=== PATIENT | female | born 1970 | race Caucasian/White ===

== ENCOUNTER 2018-02-25 18:46 | Emergency (ER) | payer SELFPAY ==
--- NOTE | 2018-02-25 19:27 | EKG REPORT ---
SEVERITY:- BORDERLINE ECG - SINUS RHYTHM PROBABLE LEFT ATRIAL ABNORMALITY : Confirmed by: Raleigh Anguiano MD 25-Feb-2018 19:27:00
[2018-02-25] MEDS ORDERED: ASPIRIN 81 MG TABLET, CHEWABLE PO ONE (19:36)
--- NOTE | 2018-02-25 19:36 | ER Document Report ---
ED Medical Screen (RME) - General Chief Complaint: Chest Pain Stated Complaint: CHEST PAIN, DIFFICULTY BREATHING, NUMBNESS Time Seen by Provider: 02/25/18 19:35 TRAVEL OUTSIDE OF THE [place] IN LAST 30 DAYS: No - HPI Notes: 02/25/18 19:35 Chest pain shortness of breath ongoing for months worse over the last few days recent travel to [place] sent from urgent care to rule out PE - Related Data Allergies/Adverse Reactions: No Known Allergies Allergy (Verified 02/25/18 19:35) Past Medical History - Social History Chew tobacco use (# tins/day): No Frequency of alcohol use: Rare Drug Abuse: Marijuana Renal/ Medical History: Denies: Hx Peritoneal Dialysis Past Surgical History: Reports: Hx Section - Immunizations Hx Diphtheria, Pertussis, Tetanus Vaccination: Yes Review of Systems - Review of Systems Cardiovascular: Chest pain, Dyspnea Physical Exam - Vital signs Vitals: Temp Pulse Resp BP Pulse Ox 98.8 F 63 14 137/84 H 99 02/25/18 19:03 02/25/18 19:03 02/25/18 19:03 02/25/18 19:03 02/25/18 19:03 - Respiratory Respiratory status: No respiratory distress Chest status: Nontender Breath sounds: Normal Chest palpation: Normal Course - Vital Signs Vital signs: Temp Pulse Resp BP Pulse Ox 98.8 F 63 14 137/84 H 99 02/25/18 19:03 02/25/18 19:03 02/25/18 19:03 02/25/18 19:03 02/25/18 19:03
--- NOTE | 2018-02-25 20:16 | RADIOLOGY REPORT (SQ) ---
EXAM DESCRIPTION: CHEST SINGLE VIEW COMPLETED DATE/TIME: 02/25/2018 7:50 pm REASON FOR STUDY: sob COMPARISON: 08/24/2014 EXAM PARAMETERS: NUMBER OF VIEWS: One view. TECHNIQUE: Single frontal radiographic view of the chest acquired. RADIATION DOSE: NA LIMITATIONS: None. FINDINGS: LUNGS AND PLEURA: No opacities, masses or pneumothorax. No pleural effusion. MEDIASTINUM AND HILAR STRUCTURES: No masses. Contour normal. HEART AND VASCULAR STRUCTURES: Heart normal in size. Normal vasculature. BONES: No acute findings. HARDWARE: None in the chest. OTHER: No other significant finding. IMPRESSION: NO ACUTE RADIOGRAPHIC FINDING IN THE CHEST. TECHNICAL DOCUMENTATION: JOB ID: [id number] [employer]- All Rights Reserved Reading location - IP/workstation name: [email or web address]
[2018-02-25 20:30] LABS: ABSOLUTE BASOPHILS # (AUTO) 0.1 10^3/uL (0.0-0.2); ABSOLUTE EOSINOPHILS # (AUTO) 0.1 10^3/uL (0.0-0.6); ABSOLUTE MONOCYTES (AUTO) 0.6 10^3/uL (0.1-1.4); ABSOLUTE NEUT (AUTO) 5.1 10^3/uL (1.7-8.2); BASOPHILS % (AUTO) 1.1 % (0-2); EOSINOPHILS % (AUTO) 1.8 % (0-6); HEMOGLOBIN 13.6 g/dL (12.0-15.5); LYMPHOCYTES % (AUTO) 25.2 % (13-45); MEAN CORPUSCULAR HEMOGLOBIN 27.4 pg (27.0-33.4); MEAN CORPUSCULAR HGB CONC 33.9 g/dL (32.0-36.0); MEAN CORPUSCULAR VOLUME 81 fl (80-97); MONOCYTES % (AUTO) 7.2 % (3-13); PLATELET COUNT 289 10^3/uL (150-450); RED BLOOD COUNT 4.94 10^6/uL (3.72-5.28); RED CELL DISTRIBUTION WIDTH 13.6 % (11.5-14.0); SEGMENTED NEUTROPHILS % (AUTO) 64.7 % (42-78); TOTAL CELLS COUNTED % (AUTO) 100 %; WHITE BLOOD COUNT 7.9 10^3/uL (4.0-10.5)
[2018-02-25 20:51] LABS: ALANINE AMINOTRANSFERASE 26 U/L (9-52); ALBUMIN 4.4 g/dL (3.5-5.0); ALKALINE PHOSPHATASE 79 U/L (38-126); ANION GAP 11 (5-19); ASPARTATE AMINO TRANSFERASE 20 U/L (14-36); BILIRUBIN,DIRECT 0.2 mg/dL (0.0-0.4); BILIRUBIN,TOTAL 0.2 mg/dL (0.2-1.3); BLOOD UREA NITROGEN 10 mg/dL (7-20); CALCIUM 9.9 mg/dL (8.4-10.2); CARBON DIOXIDE 25 mmol/L (22-30); CHLORIDE 105 mmol/L (98-107); CREATINE KINASE 104 U/L (30-135); GLUCOSE 94 mg/dL (75-110); SODIUM 141.2 mmol/L (137-145); TOTAL PROTEIN 7.4 g/dL (6.3-8.2)
[2018-02-25 21:01] LABS: CREATINE KINASE MB 0.97 ng/mL (<4.55)
--- NOTE | 2018-02-25 21:01 | ER Document Report ---
ED General - General Chief Complaint: Chest Pain Stated Complaint: CHEST PAIN, DIFFICULTY BREATHING, NUMBNESS Time Seen by Provider: 02/25/18 19:35 Notes: Patient is a 47-year-old female comes emergency department for chief complaint of intermittent tightness in her chest, intermittent sensation of shortness of breath, anxiety episodes, and intermittent tingling in her hands with pain in her back. She states she has been having the symptoms for the Past couple of months, noticed more over the past 2-3 weeks and also today. She went to urgent care and they referred her here. She states she traveled to [place] 5 weeks ago, she denies any lower extremity swelling, surgery, history of blood clot. She does not smoke except for marijuana, she denies any recreational drugs otherwise, she denies any daily medications, only past medical history reported is a . Patient believes she has family hx of [place]. TRAVEL OUTSIDE OF THE [place] IN LAST 30 DAYS: No - Related Data Allergies/Adverse Reactions: No Known Allergies Allergy (Verified 02/25/18 19:35) Past Medical History - General Information source: Patient - Social History Smoking Status: Former Smoker Chew tobacco use (# tins/day): No Frequency of alcohol use: Rare Drug Abuse: Marijuana Lives with: Family Family History: Reviewed & Not Pertinent Patient has suicidal ideation: No Patient has homicidal ideation: No Renal/ Medical History: Denies: Hx Peritoneal Dialysis Past Surgical History: Reports: Hx Section - Immunizations Hx Diphtheria, Pertussis, Tetanus Vaccination: Yes Review of Systems - Review of Systems Constitutional: No symptoms reported EENT: No symptoms reported Cardiovascular: See HPI Respiratory: See HPI Gastrointestinal: No symptoms reported Genitourinary: No symptoms reported Female Genitourinary: No symptoms reported Musculoskeletal: No symptoms reported Skin: No symptoms reported Hematologic/Lymphatic: No symptoms reported Neurological/Psychological: See HPI Physical Exam - Vital signs Vitals: Temp Pulse Resp BP Pulse Ox 98.8 F 63 14 137/84 H 99 02/25/18 19:03 02/25/18 19:03 02/25/18 19:03 02/25/18 19:03 02/25/18 19:03 Interpretation: Normal - General General appearance: Alert, Other - Patient appears slightly pale and tired but otherwise she is alert and well-appearing In distress: None - HEENT Head: Normocephalic, Atraumatic Eyes: Normal Pupils: PERRL Mucous membranes: Normal Pharynx: Normal Neck: Normal - Respiratory Respiratory status: No respiratory distress Chest status: Nontender Breath sounds: Normal Chest palpation: Normal - Cardiovascular Rhythm: Regular. No: Tachycardia Heart sounds: Normal auscultation, S1 appreciated, S2 appreciated Murmur: No Normal capillary refill: Yes - Abdominal Inspection: Normal Distension: No distension Bowel sounds: Normal Tenderness: Nontender Organomegaly: No organomegaly - Back Back: Normal, Nontender - Extremities General upper extremity: Normal inspection, Nontender, Normal color, Normal ROM , Normal temperature General lower extremity: Normal inspection, Nontender, Normal color, Normal ROM , Normal temperature, Normal weight bearing. No: Natividad's sign - Neurological Neuro grossly intact: Yes Cognition: Normal Orientation: AAOx4 Zach Coma Scale Eye Opening: Spontaneous Zach Coma Scale Verbal: Oriented Zach Coma Scale Motor: Obeys Commands Zach Coma Scale Total: 15 Speech: Normal Motor strength normal: LUE, RUE, LLE, RLE Sensory: Normal - Psychological Associated symptoms: Normal affect, Normal mood - Skin Skin Temperature: Warm Skin Moisture: Dry Skin Color: Pale - Slightly pale Course - Re-evaluation Re-evalutation: EKG shows sinus rhythm at a rate of 62, no T-wave inversions or ST segment changes in consecutive leads, QTC of 435, unremarkable SC interval. Chest x- ray is unremarkable. Patient is not tachycardic, she is well-appearing. CBC, chemistry unremarkable. D-dimer is negative. Cardiac enzymes negative. Symptoms have been going on since this morning and also intermittently for weeks. I discussed results with patient. Patient still reporting intermittent feeling where she feels like she is short of breath or she has a fleeting discomfort in her chest, this is nonspecific and not reproducible. She states that every time she gets anxious she feels it. Patient states she has been under a lot of stress, her dad recently , she has had a lot of stressful things happening at home, she is not sleeping well. and mother came to bedside, they are very supportive, patient denies SI or HI, she states she just wanted to get checked out and she wants to go home. Patient also has tightness in the paracervical muscles of her back. Low suspicion of ACS, PE, dissection, or other acute emergent etiology. Discussed options, patient requesting to go home , she states she has follow-up, discussed recommendations, treatment, return precautions, patient and family state satisfaction and agreement. - Vital Signs Vital signs: Temp Pulse Resp BP Pulse Ox 97.9 F 63 15 132/83 H 100 02/25/18 22:25 02/25/18 19:03 02/25/18 22:17 02/25/18 22:18 02/25/18 22:18 - Laboratory Result Diagrams: 02/25/18 20:16 02/25/18 20:16 Discharge - Discharge Clinical Impression: Anxiety Chest pain Qualifiers: Chest pain type: unspecified Qualified Code(s): R07.9 - Chest pain, unspecified Back pain Qualifiers: Back pain location: back pain in unspecified location Chronicity: unspecified Back pain laterality: bilateral Qualified Code(s): M54.9 - Dorsalgia, unspecified Condition: Stable Disposition: HOME, SELF-CARE Additional Instructions: Your workup today did not show any concerning abnormalities. Take the muscle relaxer as prescribed to help with muscle spasms and I recommend taking this at night to help you sleep. Follow-up with your provider within the next several days for additional evaluation and management. Return if you worsen including passing out, vomiting, fever, difficulty breathing, or any other concerning or worsening symptoms. Chest Pain of Unclear Cause The exact cause of your chest pain isn't clear. Fortunately, there is no evidence of a dangerous medical condition. Further testing may be required to find the source of the pain. Most often, we find that this pain is coming from the chest wall -- the muscles or rib joints in the chest. But chest pain can come from the lung and lung lining, the esophagus, the heart valves or heart lining, and even the stomach or gallbladder. Rest. Eat lightly until the pain is gone. We may prescribe medicine for pain and inflammation. You should call the physician immediately if the pain radiates to the shoulder, jaw or arms; if you start to run a fever or develop a cough; or if you develop shortness of breath, or other new or alarming symptoms. Prescriptions: Cyclobenzaprine HCl [Flexeril 5 mg Tablet] 1 - 2 tab PO TID PRN #20 tablet PRN Reason: Forms: Return to Work Referrals: BRYAN DIETRICH MD [Primary Care Provider] - Follow up as needed
[2018-02-25 21:04] LABS: TROPONIN I < 0.012 ng/mL
[2018-02-25] MEDS ORDERED: CYCLOBENZAPRINE HCL 10 MG TABLET PO ONE (21:22)
[2018-02-26 00:29] VITALS: BP 132/83
== END 2018-02-25 22:31 | disposition home or self-care (01) ==
LOC: ER 18:46
DX: F41.9 Anxiety disorder, unspecified (principal); R07.9 Chest pain, unspecified; R20.0 Anesthesia of skin; M54.9 Dorsalgia, unspecified; R06.00 Dyspnea, unspecified; Z87.891 Personal history of nicotine dependence
CPT/HCPCS: 36415; 71045; 80053; 82550; 82553; 84484; 85025; 85379; 93005; 93010; 99285

== ENCOUNTER 2019-05-19 06:07 | Emergency (ER) | payer SELFPAY ==
--- NOTE | 2019-05-19 07:16 | ER Document Report ---
HPI - HPI Patient complains to provider of: right low back pain with right sided sciatica Time Seen by Provider: 05/19/19 07:07 Onset/Duration: Gradual, Waxing and waning Quality of pain: Achy, Sharp Severity: Moderate Pain Level: 4 Context: This is a 48 yr old female pt with the listed pmh, presenting with an acute exacerbation of their lower back pain and right sided sciatica. Patient states that this has been ongoing for 3 wks and seems to be worsening since she is still having to go to work. she went to [facility] recently outpt and was given mobic and flexeril for her sx but states sx haven't improved any despite taking these so she came here for re-evaluation. Patient states that the pain is a sharp achy 7 out of 10 pain with radiation down her right leg, all typical of her usual sciatica flare ups when they happen. nothing different, just not pain controlled with current regimen. Patient states that movement and palpation make the pain worse and rest makes the pain better. Patient denies any numbness, tingling, change of bowel or bladder habits or signs or symptoms of saddle anesthesia. Patient states that secondary to the pain, they have come to the emergency department. No spinal surgeries. No other falls or trauma. no IV drug use. otc meds not helping much. no hx of diabetes or asthma. no recent abx or steroids. no fevers, uti/vag sx, or genitalia complaints. pt able to walk. denies . lmp 2 wks ago. no hx of renal stones. requests a work note. Patient denies all other complaints at this time. Associated Symptoms: denies: Fever Exacerbated by: Standing, Movement, Walking Relieved by: Supine, Remaining still Similar symptoms previously: Yes Recently seen / treated by doctor: Yes - ROS Systems Reviewed and Negative: Yes All other systems reviewed and negative - to include 10 systems, unless mentioned in the hpi - REPRODUCTIVE Reproductive: DENIES: : Past Medical History - General Information source: Patient - Social History Smoking Status: Unknown if Ever Smoked Frequency of alcohol use: Occasional Drug Abuse: Marijuana Family History: Reviewed & Not Pertinent Patient has suicidal ideation: No Patient has homicidal ideation: No Endocrine Medical History: Denies: Hx Diabetes Mellitus Type 1, Hx Diabetes Mellitus Type 2, Hx Hypothyroidism Renal/ Medical History: Denies: Hx Kidney Stones, Hx Peritoneal Dialysis Musculoskeletal Medical History: Reports Hx Arthritis, Reports Other - chronic low back pain, DJD, right sided sciatica Infectious Medical History: Reports: None Past Surgical History: Reports: Hx Section - Immunizations Immunizations up to date: Yes Hx Diphtheria, Pertussis, Tetanus Vaccination: Yes Vertical Provider Document - CONSTITUTIONAL Notes: Vital signs: All vital signs were reviewed per nursing notes. Gen. Appearance: Nontoxic, patient of stated age, laying comfortably in the be d. pleasant, middle aged female with a heating pad on her right lower back, smiling, speaking in full sentences, in no sign of pain or resp distress, nontoxic, appears to have some pain with sitting up, otherwise nontoxic Psychiatric: Alert and oriented x3, pleasant and very conversational, normal affect. Skin: Warm, pink, dry, normal turgor, no rashes. no grossly visible overlying skin changes or signs of trauma. HEENT: Normocephalic, atraumatic, no penn signs. no raccoon eyes, pupils are equal and reactive to light, extraocular muscles intact, tympanic membranes and canals normal bilat, mucosal membranes moist, pink conjunctiva, no pharyngeal erythema, no tonsilar exudate. uvula midline. tongue protrudes midline Neck: Supple, no tenderness, no lymphadenopathy. full rom and full strength. no meningeal signs. no signs of central cord syndrome CV: Regular rate and rhythm, Lungs: Clear to auscultation bilaterally, no wheezes, symmetrical chest rise. no chest wall ttp Abdomen: Soft, nontender, nondistended, good bowel sounds, no rebound, rigidity, guarding or peritoneal signs. No CVA tenderness bilaterally. This is a nonacute abdomen. No tenderness over McBurney's point. no grossly visible or palpable abdominal hernias Pelvic: pt deferred Rectal: deferred; however, no sign of loss of bowel or bladder, no soiling of clothing Back: There is increased tissue tension over the paralumbar musculature on the bilat sides- R>L. Palpation to this region did reproduce patient's pain exactly. There is no tenderness to palpation along the midline of the cervical, thoracic or lumbar spine. There are no step-offs or deformities noted. no overlying skin changes. Extremities: Distal pulses two out of four, good capillary refill, no edema, cyanosis or clubbing. full rom and full strength in all extremities with pain on right hip flexion and extension. no swelling or ttp of the extremities. slight antalgic gait secondary only to pain. 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 neg essie sign. neg willard squeeze. no drop foot. no shortening or rotation of the limbs. no obvious deformities. Neuro: Cranial nerves II through XII intact, normal speech, cerebellar function intact. Symmetric smile and faces. reflexes wnl. motor and sensation intact to light touch. - INFECTION CONTROL TRAVEL OUTSIDE OF THE [place] IN LAST 30 DAYS: No Course - Re-evaluation Re-evalutation: This patient presents with an acute exacerbation of their chronic right lower back pain and right sided sciatica worsening over the last few weeks to days now. There are no signs or symptoms of saddle anesthesia or change in bowel or bladder habits. There are no current findings on examination indicative of spinal cord involvement. no uti sx. no fall or trauma so imaging wasn't done. pain likely musculoskeletal and reproducible on exam. responded well to tx here. will dc with a few ultram, robaxin, and prednisone taper. pt denies any prior seizure hx. advised to dc the flexeril with these meds. gave medication precautions. advised sx care. gave requested work note. Patient will followup ny th PCP/pain management/neurosurg within 2-4 days. Patient will return immediately to the emergency department with any worsening symptoms. Patient understands and was in agreement with treatment plan. Vss. Afebrile. Well appearing. Satting well on ra. Neurononfocal. no sign of cauda equina, central cord syndrome or spinal cord involvement. According to the [place] drug website, she hasn't received any narcotics in the last 2 yrs. On reexam, pt improved with tx listed. remained stable. nontoxic. well appearing. pain controlled. tolerating po. requesting to go home. neurononfocal. Documentation achieved through voice recording which my lead to some occasional accidental typographical errors. Extensive efforts have been made to proof read documentation to make sure these are the least as possible. Category Date Time Status Methocarbamol [Robaxin 500 mg Tablet] Med 05/19/19 07:23 Discontinued 1,000 mg PO NOW ONE Prednisone [Deltasone 20 mg Tablet] Med 05/19/19 07:23 Discontinued 60 mg PO NOW ONE Tramadol HCl [Ultram 50 mg Tablet] Med 05/19/19 07:23 Discontinued 50 mg PO NOW ONE - Vital Signs Vital signs: Temp Pulse Resp BP Pulse Ox 97.8 F 72 18 144/73 H 97 05/19/19 06:12 05/19/19 06:12 05/19/19 06:12 05/19/19 06:12 05/19/19 06:12 Temp Pulse Pulse Resp BP BP Pulse Ox 05/19/19 07:40 98.2 F 53 L 15 135/73 H 05/19/19 06:12 97.8 F 72 18 144/73 H 97 Discharge - Discharge Clinical Impression: Right-sided low back pain with sciatica Qualifiers: Chronicity: acute Sciatica laterality: sciatica of right side Qualified Code(s): M54.41 - Lumbago with sciatica, right side Condition: Good Disposition: HOME, SELF-CARE Instructions: Sciatica (OM) Additional Instructions: Follow-up with PCP/neurosurg/pain management in 1 to 2 days. Return for any worsening symptoms. ice/heat to the area. do not work, drive, or operate machinery while taking the ultram and robaxin. over the counter tens unit and lidocaine patches. stop taking the flexeril and do not take it with the robaxin. Prescriptions: Methocarbamol [Robaxin] 1,000 mg PO QID PRN #40 tablet PRN Reason: Muscle Spasms Prednisone 10 mg PO ASDIR #21 tab.ds.pk Tramadol HCl [Ultram 50 mg Tablet] 50 mg PO QID PRN #12 tab PRN Reason: For Pain Forms: Return to Work Referrals: BRYAN DIETRICH MD [NO LOCAL MD] - Follow up in 3-5 days
[2019-05-19] MEDS ORDERED: METHOCARBAMOL 500 MG TABLET PO ONE (07:23)
[2019-05-19] MEDS ORDERED: TRAMADOL HCL 50 MG TABLET PO ONE (07:23)
[2019-05-19] MEDS ORDERED: PREDNISONE 20 MG TABLET PO ONE (07:23)
[2019-05-19 07:41] VITALS: BP 135/73
== END 2019-05-19 07:41 | disposition home or self-care (01) ==
LOC: ER 06:07
DX: M54.41 Lumbago with sciatica, right side (principal); G89.29 Other chronic pain; F12.10 Cannabis abuse, uncomplicated
CPT/HCPCS: 99283; J7512